=== PATIENT | female | born 1950 | race Caucasian/White ===

== ENCOUNTER 2016-11-17 11:00 | Emergency (ER) | payer OTHER ==
[~2016-11-17] VITALS: Ht 170.2 cm; Wt 63.2 kg
[2016-11-17 11:41] LABS: EOSINOPHIL (%) 4.5 % (0-5); EOSINOPHIL COUNT 0.3 K/uL (0-0.3); HEMATOCRIT 39.3 % (36.0-46.0); IMMATURE GRANULOCYTE (%) 0.2 % (0.0-0.7); INSTRUMENT ABS NEUTROPHIL CT 3.3 K/uL; MCH 32.4 PG (29.0-34.0); MCHC 33.8 G/DL (30.0-36.0); MCV 95.6 FL (83-99); MEAN PLAT.VOLUME 9.5 uM^3 (9.5-12.4); MONOCYTE (%) 10.3 % (3-12); MONOCYTE COUNT 0.6 K/uL (0-0.8); NEUTROPHIL (%) 52.8 % (45-76); NEUTROPHIL COUNT 3.3 K/uL (1.8-6.4); PLATELET COUNT 296 K/uL (156-360); RBC DIS.WIDTH-CV 11.6 % (11.8-14.6); RBC DIS.WIDTH-SD 40.5 % (39-53); RED BLOOD COUNT 4.11 M/uL (3.80-5.20); WHITE BLOOD COUNT 6.2 K/uL (4.1-10.2)
[2016-11-17 11:53] LABS: CHLORIDE 104 mEq/L (99-109); POTASSIUM 4.4 mEq/L (3.7-5.4); SODIUM 138 mEq/L (136-147)
[2016-11-17 11:55] LABS: GLUCOSE 108 mg/dL (70-99)
[2016-11-17 11:57] LABS: ANION GAP 8 MEQ/L (2-14); TOTAL BILIRUBIN 0.6 mg/dL (0.0-1.0)
[2016-11-17 11:59] LABS: ALKALINE PHOSPHATASE 63 IU/L (3-129); GFR ESTIMATE (CALCULATED) > 59 mL/min/
[2016-11-17 12:00] LABS: UREA NITROGEN (BUN) 17 mg/dL (9-23)
[2016-11-17 12:01] LABS: DIRECT BILIRUBIN 0.2 mg/dL (0.0-0.3)
[2016-11-17] MEDS ORDERED: CLOPIDOGREL75 MG PO (12:53)
[2016-11-17] MEDS ORDERED: OMEPRAZOLE40 M1 PO (12:53)
[2016-11-17] MEDS ORDERED: AMLODIPINE BESYL5 MG PO (12:53)
[2016-11-17] MEDS ORDERED: LO-DOSE ASPIRIN81 M2 PO (12:54)
[2016-11-17] MEDS ORDERED: CARVEDILOL3.125 MG PO (12:54)
[2016-11-17] MEDS ORDERED: ASCORBIC ACID500 M3 PO (12:54)
[2016-11-17] MEDS ORDERED: IRON PO (12:55)
[2016-11-17] MEDS ORDERED: TRUVADA1 TABLET PO (14:05)
[2016-11-17] MEDS ORDERED: ISENTRESS400 MG PO (14:06)
[2016-11-17 14:13] LABS: AHBS INDEX > 1000.00; HPCA INDEX 0.13
[2016-11-17 14:14] LABS: HIV-1/2 AB/AG COMBO Nonreactive
[2016-11-17 14:15] LABS: HEPATITIS B SURFACE ANTIBODY REACTIVE
[2016-11-17 14:18] VITALS: BP 126/86
== END 2016-11-17 14:19 | disposition home or self-care (01) ==
LOC: EME 11:00
PROVIDERS: Nurse Practitioner Family
DX: Z77.21 Contact with and (suspected) exposure to potentially hazardous body fluids (principal); Y99.0 Civilian activity done for income or pay
CPT/HCPCS: 80048; 80076; 85025; 86703; 86706; 86803; 99281; 99284